=== PATIENT | male | born 1930 | race Caucasian/White ===

== ENCOUNTER 2018-12-28 15:35 | Emergency (ER) | payer OTHER ==
[~2018-12-28] VITALS: Ht 172.7 cm; Wt 79.4 kg
[~2018-12-28 15:35] MED LIST: CHOLESTEROL; [UNRECOGNIZED DRUG - OTHER]; [UNRECOGNIZED DRUG - REMARK]
[2018-12-28] MEDS ORDERED: LIDOCAINE 1%-EPI 1:100,000 20 ML VIAL TP ONE (16:00)
[2018-12-28] MEDS ORDERED: CEphaleXIN 500 MG CAPSULE PO ONE (16:00)
--- NOTE | 2018-12-28 16:05 | NUR ---
DR LERNER EVALUATED THE PT. PT IS IN ROOM #1B.
[2018-12-28] MEDS ORDERED: CEphaleXIN 500 MG CAPSULE ONE (16:09)
[2018-12-28] MEDS ORDERED: NEOMY/BACITRA/POLYMYXIN B OINT UD PACKET TP ONE ×2 (16:21→16:45)
--- NOTE | 2018-12-28 16:44 | NUR ---
Patient discharged to home in stable conditon. Written and verbal after care instructions given. Patient and verbalizes understanding of instructions.
[2018-12-28 16:46] VITALS: BP 102/69
== END 2018-12-28 16:47 | disposition home or self-care (01) ==
LOC: ER 15:38
DX: M70.21 Olecranon bursitis, right elbow (principal); L03.113 Cellulitis of right upper limb; I10 Essential (primary) hypertension; E78.00 Pure hypercholesterolemia, unspecified; Z79.899 Other long term (current) drug therapy; Y93.89 Activity, other specified
CPT/HCPCS: 10160; 99283; J3490; A4663